=== PATIENT | female | born 1955 | race Caucasian/White ===

== ENCOUNTER → 2016-08-29 | Outpatient (CLI) | payer OTHER | LOC: LAB 08:21 | DX: K76.9 Liver disease, unspecified (principal) | CPT/HCPCS: 36415; 82565; 84520 ==

== ENCOUNTER → 2016-09-01 | Outpatient (CLI) | payer OTHER | LOC: CT 09:29 | DX: K76.9 Liver disease, unspecified (principal) | CPT/HCPCS: J7050; Q9962 ==

== ENCOUNTER → 2020-11-16 | Outpatient (CLI) | payer BC ==
[~2020-11-16] MED LIST: ASPIR 8181 MG PO; B COMPLEX1 EACH PO; BIOTIN800 MCG PO; PERCOCET 7.5-31 EACH PO; THERAGRAN M TAB1 EA PO; VITAMIN D-32000 UNIT PO; [UNRECOGNIZED DRUG - OTHER] PO
== END ==
LOC: CT 07:00
DX: Z08 Encounter for follow-up examination after completed treatment for malignant neoplasm (principal); Z85.3 Personal history of malignant neoplasm of breast; Z90.12 Acquired absence of left breast and nipple; R91.1 Solitary pulmonary nodule; K76.9 Liver disease, unspecified
CPT/HCPCS: 71250; Q9967